=== PATIENT | male | born 1950 | race Caucasian/White ===

== ENCOUNTER 2020-03-02 09:42 | Emergency (ER) | payer OTHER, MEDICARE, SELFPAY ==
[2020-03-02 09:49] VITALS: PULSE 57; RESP 17; TEMP 36.4; O2SAT 97; BMI 29.0
--- NOTE | 2020-03-02 10:01 | ED_ITS ---
HPI - Nausea/Vomiting/Diarrhea General: Chief complaint: Nausea/Vomiting/Diarrhea Stated complaint: N/V X 3DAYS Time Seen by Provider: 03/02/20 09:46 History of Present Illness: HPI Narrative: Patient is a 69-year-old male who presents to ED today along with his for complaints of nausea, vomiting, upper abdominal pain over the past 2 days. tells me patient has had intermittent similar episodes for years although they have never received a formal diagnosis. states patient's symptoms will normally begin after supper but will resolve by the morning. They state they became concerned when symptoms have lasted 2 days. In addition they have noticed coffee ground emesis. Patient does have a history of peptic ulcer disease in which he treats with omeprazole daily. or do not report any previous EGD studies. Patient denies lightheadedness/dizziness. He reports normal bowel movements although states over the past few days he has not had much stool production stating he has not been able to eat. Patient is not on any form of anticoagulation. MD elicited complaint: nausea, vomiting and abdominal pain Onset (ago): day(s) Description of vomiting: coffee grounds Associated nausea: Yes Associated abdominal pain: Yes Location of pain: Epigastric Pain consistency: constant Associated symtoms: Reports nausea; Denies change in vision, chest pain, dysuria, headache(s), palpitations or syncope Review of Systems Const: Denies: fever(s) or chills Eyes: Denies: change in vision or blurry vision ENMT: Denies: throat pain, enlarged tonsils or odynophagia Card: Denies: chest pain, palpitations, irregular heart rhythm, lightheadedness, syncope or dyspnea on exertion Resp: Denies: dyspnea, productive cough or pain on inspiration GI: Reports: abdominal pain, nausea, vomiting, coffee ground emesis and heartburn; Denies: dysphagia, diarrhea, constipation, change in bowel habits, pain on defecation, change in stool character, hematochezia or white/light colored stool : Denies: flank pain, difficulty urinating, dysuria, urinary frequency or urinary urgency Musc: Denies: neck pain, back pain, extremity pain, extremity swelling, joint pain or joint swelling Skin/Breast: Denies: rash Neuro: Denies: headache(s), numbness in extremities, weakness in extremities or sensory changes PFSH ED PFSH: Social History Smoking and tobacco status: never smoked Physical Exam Const: COMMON NORMALS: average body habitus, patient oriented x3, no limitations, healthy appearing, alert and well nourished GENERAL APPEARANCE: cooperative and in distress (mild; appears nauseous and uncomfortable ) HENMT: COMMON NORMALS: normocephalic and atraumatic HEAD & SCALP: normocephalic and atraumatic Resp: COMMON NORMALS: normal respiratory effort and clear to auscultation bilaterally AUSCULTATION: clear to auscultation bilaterally Cardio: COMMON NORMALS: regular rate and regular rhythm RATE: regular rate RHYTHM: regular rhythm GI: COMMON NORMALS: Normal to inspection, nondistended, normoactive bowel sounds present, Soft to palpation, No hepatosplenomegaly present and no masses PALPATION: Yes Soft to palpation, Yes Tenderness to palpation present (GI) (epigastric region) and Yes No hepatosplenomegaly present RECTAL EXAM: Yes heme negative stool : COMMON NORMALS: Yes no CVA tenderness BLADDER/KIDNEY EXAM: Yes no CVA tenderness Back/Pelvis: COMMON NORMALS: no CVA tenderness Extremity: COMMON NORMALS: normal to inspection Neuro: COMMON NORMALS: patient oriented x3 SENSORIUM/ORIENTATION: Yes alert Skin: COMMON NORMALS: no rashes or lesions noted GENERAL SKIN EXAM: no rashes or lesions noted Course Vital Signs: Vital signs: Vital Signs Temperature 97.6 F 03/02/20 09:49 Pulse Rate 72 03/02/20 13:44 Respiratory Rate 18 03/02/20 13:44 Blood Pressure 156/87 03/02/20 13:44 Pulse Oximetry 99 03/02/20 13:44 MDM - Nausea/Vomiting/Diarrhea MDM Narrative: Medical decision making narrative: Patient feeling better after GI cocktail and other medications given here. Patient's H/H are stable. He has normal vital signs. He has not had any episodes of emesis while here. Stool hemoccult is negative. Patient was given IV Protonix. He will be encouraged to continue his daily omeprazole and I will add Carafate. Case management has got patient follow-up with Dr. Haile in 1 week for evaluation for possible EGD. Of note he does have a large hiatal hernia that they are aware of. Strict return to ED precautions given regarding recurrent vomiting, worsening abdominal pain, or any other concerns they may have. Lab Data: Labs: Lab Results 03/02/20 03/02/20 Range/Units 10:17 10:17 WBC 13.2 H (4.0-10.0) 10^3/ uL RBC 5.04 (4.1-5.3) 10^6/u L Hgb 14.1 (11.7-16.6) g/dL Hct 43.2 (42.0-52.0) % MCV 85.7 (80-94) fL MCH 28.0 (28.0-34.0) pg MCHC 32.6 (30.0-36.0) g/dL RDW 13.9 (12.1-15.1) % Plt Count 237 (130-400) 10^3/c mm MPV 12.1 H (7.4-10.4) fL Neut % (Auto) 84.6 % Lymph % (Auto) 8.9 % Crook % (Auto) 5.6 % Eos % (Auto) 0.2 % Baso % (Auto) 0.2 % Neut # (Auto) 11.2 H (1.8-7.7) 10^3/u L Lymph # (Auto) 1.2 (0.8-4.8) 10^3/u L Crook # (Auto) 0.7 (0.2-0.9) 10^3/u L Eos # (Auto) 0.0 (0.0-0.8) 10^3/u L Baso # (Auto) 0.0 (0.0-0.1) 10^3/u L Nucleated RBC % (a uto) 0 % Nucleated RBCs # 0.0 /100WBC Sodium 136 (136-145) mmol/L Potassium 4.1 (3.5-5.1) mmol/L Chloride 93 L (98-107) mmol/L Carbon Dioxide 27 (22-29) mmol/L Anion Gap 20.1 H (5-19) BUN 22 (8-23) mg/dL Creatinine 1.3 H (0.7-1.2) mg/dL Glucose 147 H (65-115) mg/dL Calculated Osmolal ity 281 L (285-295) mOsm/k g Calcium 10.1 (8.5-10.5) mg/dL Total Bilirubin 0.9 (0.15-1.2) mg/dL AST 27 (0-40) U/L ALT 15 (0-41) U/L Alkaline Phosphata se 113 (40-130) IU/L Total Protein 7.9 (6.6-8.7) g/dL Albumin 4.9 (3.5-5.2) g/dL Globulin 3.0 (1.3-4.6) g/dL Lipase 34 (13-60) U/L Imaging Data^: XR abdomen : Radiologist's impression: [address] [address] XRay Report Signed Patient: Сергей [place] Unit #: [id number] : 1950 Age/Sex: 69 / M ADM Date: 03/02/20 Loc: ER Room/Bed: Attending Dr: Ordering Provider/Ordering MD: Susan Tong Date of Service: 03/02/20 Procedure(s): XR acute abdomen series 44712 Accession Number(s): [id number] Report Number: [id number] WS: [id number] Abdomen series: PA CHEST AND 2 VIEWS OF THE ABDOMEN HISTORY: epigastric pain; vomiting COMPARISON: 02/13/2009 Lungs are clear. No pneumonia. There is a large hiatal hernia. Heart is slightly enlarged with mild atherosclerosis aorta. No free air beneath the diaphragm. No GI tract obstruction. No air-fluid levels or free air. Very mild dilatation of the central small bowel loops. XR/XR acute abdomen series 77230 IMPRESSION: 1. Large hiatal hernia. 2. No pneumonia. 3. No free air. 4. Constipation. No GI tract obstruction. Very mild dilatation of the central small bowel loops. Dictated By: Kiah Figueroa DO Signed By: Kiah Figueroa DO Signed Date/Time: 03/02/20 104 DD/ 1047 Discharge Plan Discharge Patient Disposition: Home, Self-Care Clinical Impression: History of peptic ulcer disease Condition: Stable Prescriptions: New Carafate 1 gram tablet 1 gm PO TID 14 Days Qty: 42 RF: 0 Zofran 4 mg tablet 4 mg PO Q6H PRN (Reason: nausea and vomiting) Qty: 14 RF: 0 No Action allopurinol 100 mg Tablet 100 mg PO DAILY RF: 0 levothyroxine 75 mcg Tablet 75 mcg PO DAILY RF: 0 cabergoline 0.5 mg Tablet See Rx Instructions .ROUTE .COMPLEX RF: 0 omeprazole 20 mg Capsule,Delayed Release(Dr/Ec) 20 mg PO DAILY RF: 0 hydrocortisone 10 mg Tablet See Rx Instructions .ROUTE .COMPLEX RF: 0 testosterone 1.62 % (20.25 mg/1.25 gram) Gel In Packet See Rx Instructions .ROUTE .COMPLEX RF: 0 Discharge Orders: Discharge Order (Routine); Ordered 03/02/20 Ordered By: Susan Tong Referrals: Yolanda Reid FNP [Primary Care Provider] - Johan Hiale MD [Physician] - 03/09/20 9:15 am [facility] [Family Provider] - Activity Restrictions/Additional Instructions: Start taking 2 omeprazole tablets for a total of 40 mg daily in addition to the Carafate prescribed to you today. As discussed you have follow up with general surgery on 03/09 for further evaluation. They can schedule you for EGD if they feel indicated. Return to the emergency department for worsening pain, repetitive episodes of vomiting with coffee-ground emesis, or any other concerns you may have. Stay away from anti-inflammatories, alcohol, spicy foods. Discharge Date/Time: 03/02/20 13:45 Coding Level of Care Code ED Director [employer] for [employer] Fwd Exam Comprehensive
--- NOTE | 2020-03-02 10:04 | XR_ITS ---
WS: [id number] Abdomen series: PA CHEST AND 2 VIEWS OF THE ABDOMEN HISTORY: epigastric pain; vomiting COMPARISON: 02/13/2009 Lungs are clear. No pneumonia. There is a large hiatal hernia. Heart is slightly enlarged with mild a therosclerosis aorta. No free air beneath the diaphragm. No GI tract obstruction. No air-fluid levels or free air. Very mild dilatation of the central small b owel loops. XR/XR acute abdomen series [id number] IMPRESSION: 1. Large hiatal hernia. 2. No pneumonia. 3. No free air. 4. Constipation. No GI tract obstruction. Very mild dilatation of the central small bowel loops.
[2020-03-02 10:19] VITALS: RESP 18; O2SAT 95
[2020-03-02] MEDS: morphine 4 mg/mL SDV 1 mL IVP (10:19)
[2020-03-02] MEDS: ondansetron 2 mg/ML SDV 2 mL 4 MG IVP (10:19)
[2020-03-02] MEDS: sodium chloride 0.9% 1,000 ML 999 ML IV (10:24)
[2020-03-02 10:28] LABS: Basophils % 0.2 %; Eosinophils % 0.2 %; Hematocrit 43.2 % (42.0-52.0); Hemoglobin 14.1 g/dL (11.7-16.6); Lymphocytes # 1.2 10^3/uL (0.8-4.8); Lymphocytes % 8.9 %; Mean Corpuscular HGB Conc 32.6 g/dL (30.0-36.0); Mean Corpuscular Volume 85.7 fL (80-94); Mean Platelet Volume 12.1 fL (7.4-10.4); Monocytes # 0.7 10^3/uL (0.2-0.9); Monocytes % 5.6 %; Neutrophils # 11.2 10^3/uL (1.8-7.7); Neutrophils % 84.6 %; Nucleated Red Blood Cells % 0 %; Platelet Count 237 10^3/cmm (130-400); Red Blood Count 5.04 10^6/uL (4.1-5.3); Red Cell Distribution Width 13.9 % (12.1-15.1); White Blood Count 13.2 10^3/uL (4.0-10.0)
[2020-03-02 10:43] LABS: Alanine Aminotransferase 15 U/L (0-41); Albumin Level 4.9 g/dL (3.5-5.2); Alkaline Phosphatase 113 IU/L (40-130); Anion Gap 20.1 (5-19); Aspartate Amino Transferase 27 U/L (0-40); Blood Urea Nitrogen 22 mg/dL (8-23); Calcium 10.1 mg/dL (8.5-10.5); Carbon Dioxide 27 mmol/L (22-29); Chloride 93 mmol/L (98-107); Glucose 147 mg/dL (65-115); Lipase 34 U/L (13-60); Osmolality Calculated 281 mOsm/kg (285-295); Potassium 4.1 mmol/L (3.5-5.1); Sodium 136 mmol/L (136-145); Total Bilirubin 0.9 mg/dL (0.15-1.2); Total Protein 7.9 g/dL (6.6-8.7)
[2020-03-02] MEDS: pantoprazole 40 mg SDV 80 MG IVP (11:04)
--- NOTE | 2020-03-02 13:07 | DCPLANNER ---
teller manager was asked to schedule a follow up appointment for patient with general surgery. teller manager called [facility], spoke with Shama, a follow up appointment was scheduled for Thursday, March 09, 2020 at 9:15. teller manager informed ED physician about scheduled appointment. teller manager also called [facility] and informed her that patient was seen in the ED and the appointment information.
[2020-03-02] MEDS: lidocaine 2% viscous 15 ML, aluminum-mag hydrox-simethicon 30 ML, sucralfate oral liq 1 GM PO (13:15)
[2020-03-02 13:44] VITALS: BP 156/87; PULSE 72; RESP 18; O2SAT 99
--- NOTE | 2020-03-30 15:15 | DCPLANNER ---
Patient had an appointment scheduled for 03.09.20 with [facility]. Appointment was cancelled.
== END 2020-03-02 13:45 | disposition home or self-care (01) ==
PROVIDERS: Emergency Provider Physician Assistant; PCP Nurse Practitioner Family
DX: R11.2 Nausea with vomiting, unspecified (principal); R19.7 Diarrhea, unspecified; Z87.11 Personal history of peptic ulcer disease
CPT/HCPCS: 12345; 74022; 80053; 83690; 85025; 96361; 96374; 96375; 99283; C9113; J2270; J2405; J7030

== ENCOUNTER → 2023-03-26 14:24 | Outpatient (BNVA) | payer OTHER, SELFPAY | PROVIDERS: PCP Emergency Medicine Emergency Medical Services; Referring Provider Emergency Medicine Emergency Medical Services; Visit Provider Internal Medicine | DX: D35.2 Benign neoplasm of pituitary gland (principal); Z12.5 Encounter for screening for malignant neoplasm of prostate; R79.89 Other specified abnormal findings of blood chemistry; E03.9 Hypothyroidism, unspecified; E27.40 Unspecified adrenocortical insufficiency; Z79.890 Hormone replacement therapy | CPT/HCPCS: 99204 ==

== ENCOUNTER → 2023-03-30 09:07 | Outpatient (BNVA) | payer OTHER, SELFPAY | PROVIDERS: PCP Emergency Medicine Emergency Medical Services; Visit Provider Internal Medicine | DX: D35.2 Benign neoplasm of pituitary gland (principal); Z12.5 Encounter for screening for malignant neoplasm of prostate | CPT/HCPCS: 80053; 84305; 84403; 84439; 84443; 85025; G0103 ==

== ENCOUNTER → 2023-03-31 09:07 | Outpatient (BNVA) | payer OTHER, SELFPAY | PROVIDERS: PCP Emergency Medicine Emergency Medical Services; Visit Provider Internal Medicine | DX: D35.2 Benign neoplasm of pituitary gland (principal); Z12.5 Encounter for screening for malignant neoplasm of prostate; E27.40 Unspecified adrenocortical insufficiency | CPT/HCPCS: 84146 ==

== ENCOUNTER 2023-04-09 07:28 | Outpatient (CLI) | payer OTHER, SELFPAY ==
--- NOTE | 2023-04-09 08:00 | MR_ITS ---
WS: [id number] MRI BRAIN WITHOUT AND WITH CONTRAST, ATTENTION DIRECTED TO THE PITUITARY GLAND HISTORY: pituitary adenoma COMPARISON: 02/29/2020 and 10/09/2021. TECHNIQUE: Diffusion-weighted imaging, axial T2 sequence, and postcontrast images in 3 planes are per formed. High-resolution coronal and sagittal imaging performed through the pituitary region with and without intravenous gadolinium. MultiHance 20 mL IV. No residual or significant pituitary adenoma is identified in the dorsum sellae. Again noted is a pro minent normal neurohypophysis. Normal pituitary gland is becoming compressed in the floor the dorsum sellae. There is no mass or abnormal enhancement in the pituitary gland. No displacement of the optic chiasm or the infundibulum. No acute infarcts or hemorrhage. Mild to moderate small vessel ischemic type changes throughout the w rashad matter. No enhancing masses or hemorrhage. Tiny mucous retention cyst in the LEFT maxillary sinus. No fluid in the mastoid air cells. No air-flu id levels. MR/MR pituitary wo/w con* [id number] IMPRESSION: 1. No residual pituitary microadenoma or macroadenoma is identified in the jair la turcica. Stable appearance of the sella turcica as compared to 02/29/2020 and 10/09/2021. The initial MRI that described the pituitary adenoma is not availabl e for review. 2. Multiple moderate small vessel ischemic changes. 3. No enhancing masses.
[2023-04-09] MEDS: gadobenate dimeglumine 20 mL vial IV (09:01)
== END 2023-04-09 07:29 | disposition home or self-care (01) ==
LOC: RAD 07:30
PROVIDERS: PCP Emergency Medicine Emergency Medical Services; Visit Provider Internal Medicine
DX: D35.2 Benign neoplasm of pituitary gland (principal)
CPT/HCPCS: 70553; A9577

== ENCOUNTER → 2023-06-29 10:35 | Outpatient (BNVA) | payer OTHER, SELFPAY | PROVIDERS: PCP Emergency Medicine Emergency Medical Services; Visit Provider Internal Medicine | DX: D35.2 Benign neoplasm of pituitary gland (principal); Z12.5 Encounter for screening for malignant neoplasm of prostate | CPT/HCPCS: 80053; 84146; 84305; 84403; 84439; 84443; 85025; G0103 ==

== ENCOUNTER → 2023-06-30 10:34 | Outpatient (BNVA) | payer OTHER, SELFPAY | PROVIDERS: PCP Emergency Medicine Emergency Medical Services; Visit Provider Internal Medicine | DX: D35.2 Benign neoplasm of pituitary gland (principal); R79.89 Other specified abnormal findings of blood chemistry; E03.9 Hypothyroidism, unspecified; E27.40 Unspecified adrenocortical insufficiency; Z79.890 Hormone replacement therapy | CPT/HCPCS: 99214 ==

== ENCOUNTER → 2023-09-15 10:19 | Outpatient (BNVA) | payer OTHER, SELFPAY | PROVIDERS: PCP Emergency Medicine Emergency Medical Services; Visit Provider Internal Medicine | DX: D35.2 Benign neoplasm of pituitary gland (principal); R79.89 Other specified abnormal findings of blood chemistry; E03.9 Hypothyroidism, unspecified; E27.40 Unspecified adrenocortical insufficiency | CPT/HCPCS: 80053; 84146; 84305; 84403; 84439; 85025; G0103 ==

== ENCOUNTER → 2023-09-16 11:06 | Outpatient (BNVA) | payer OTHER, SELFPAY | PROVIDERS: PCP Emergency Medicine Emergency Medical Services; Visit Provider Internal Medicine | DX: D35.2 Benign neoplasm of pituitary gland (principal); R79.89 Other specified abnormal findings of blood chemistry; E03.9 Hypothyroidism, unspecified; E27.40 Unspecified adrenocortical insufficiency; Z79.890 Hormone replacement therapy | CPT/HCPCS: 99214 ==

== ENCOUNTER → 2023-11-12 08:12 | Outpatient (BNVA) | payer OTHER, SELFPAY | PROVIDERS: PCP Emergency Medicine Emergency Medical Services; Visit Provider Internal Medicine | DX: D35.2 Benign neoplasm of pituitary gland (principal); R79.89 Other specified abnormal findings of blood chemistry; E03.9 Hypothyroidism, unspecified; E27.40 Unspecified adrenocortical insufficiency; Z79.899 Other long term (current) drug therapy | CPT/HCPCS: 80053; 84146; 84305; 84403; 84439; 85025; G0103 ==

== ENCOUNTER → 2024-02-19 11:12 | Outpatient (BNVA) | payer OTHER, SELFPAY | PROVIDERS: PCP Emergency Medicine Emergency Medical Services; Visit Provider Internal Medicine | DX: D35.2 Benign neoplasm of pituitary gland (principal); R79.89 Other specified abnormal findings of blood chemistry; E03.9 Hypothyroidism, unspecified; E27.40 Unspecified adrenocortical insufficiency; Z79.890 Hormone replacement therapy | CPT/HCPCS: 80053; 80061; 84146; 84403; 84439; 85025; 99214; G0103 ==

== ENCOUNTER → 2024-08-29 08:36 | Outpatient (BNVA) | payer OTHER, SELFPAY | PROVIDERS: PCP Emergency Medicine Emergency Medical Services; Visit Provider Internal Medicine | DX: D35.2 Benign neoplasm of pituitary gland (principal); R79.89 Other specified abnormal findings of blood chemistry; E03.9 Hypothyroidism, unspecified; E27.40 Unspecified adrenocortical insufficiency | CPT/HCPCS: 80053; 80061; 84146; 84403; 84439; 85025; G0103 ==

== ENCOUNTER → 2024-09-07 10:15 | Outpatient (BNVA) | payer OTHER, SELFPAY | PROVIDERS: PCP Emergency Medicine Emergency Medical Services; Visit Provider Internal Medicine | DX: D35.2 Benign neoplasm of pituitary gland (principal); R79.89 Other specified abnormal findings of blood chemistry; E03.9 Hypothyroidism, unspecified; E27.40 Unspecified adrenocortical insufficiency; Z12.5 Encounter for screening for malignant neoplasm of prostate; Z79.890 Hormone replacement therapy | CPT/HCPCS: 99214 ==

== ENCOUNTER → 2025-03-08 08:19 | Outpatient (BNVA) | payer OTHER, SELFPAY | PROVIDERS: PCP Emergency Medicine Emergency Medical Services; Visit Provider Internal Medicine | DX: D35.2 Benign neoplasm of pituitary gland (principal); R79.89 Other specified abnormal findings of blood chemistry; E03.9 Hypothyroidism, unspecified; E27.40 Unspecified adrenocortical insufficiency; Z12.5 Encounter for screening for malignant neoplasm of prostate | CPT/HCPCS: 80053; 80061; 84146; 84305; 84403; 84439; 85025; G0103 ==

== ENCOUNTER → 2025-03-09 07:30 | Outpatient (BNVA) | payer OTHER, SELFPAY | PROVIDERS: PCP Emergency Medicine Emergency Medical Services; Visit Provider Internal Medicine | DX: E03.9 Hypothyroidism, unspecified (principal); D35.2 Benign neoplasm of pituitary gland; R79.89 Other specified abnormal findings of blood chemistry; E27.40 Unspecified adrenocortical insufficiency | CPT/HCPCS: 99214 ==

== ENCOUNTER → 2025-08-29 09:08 | Outpatient (BNVA) | payer OTHER, SELFPAY | PROVIDERS: PCP Emergency Medicine Emergency Medical Services; Visit Provider Internal Medicine | DX: D35.2 Benign neoplasm of pituitary gland (principal); R79.89 Other specified abnormal findings of blood chemistry; E03.9 Hypothyroidism, unspecified; E27.40 Unspecified adrenocortical insufficiency | CPT/HCPCS: 80053; 84146; 84439 ==